=== PATIENT | male | born 1960 | race Caucasian/White ===

== ENCOUNTER 2023-09-23 17:06 | Emergency (ER) | payer OTHER ==
[~2023-09-23] VITALS: Ht 170.2 cm; Wt 77.1 kg
[2023-09-23 18:10] VITALS: BP 141/74; PULSE 65; RESP 18; TEMP 97.8; O2SAT 96
[2023-09-23 18:23] VITALS: O2SAT 96
[2023-09-23 18:51] LABS: BASOPHILS # (AUTO) 0.1 K/uL (0.00-0.22); BASOPHILS % (AUTO) 1.6 % (0.0-2.0); EOSINOPHILS % (AUTO) 0.6 % (0.0-4.0); HEMATOCRIT 38.1 % (36-52); HEMOGLOBIN 13.1 g/dL (12.0-18.0); LYMPHOCYTES # (AUTO) 0.8 K/uL (2.0-11.5); LYMPHOCYTES % (AUTO) 17.7 % (20.5-51.1); MEAN CORPUSCULAR HEMOGLOBIN 31 pg (27-31); MEAN CORPUSCULAR HGB CONC 34 g/dL (33-37); MEAN CORPUSCULAR VOLUME 91.1 fL (80-94); MONOCYTES # (AUTO) 0.6 K/uL (0.8-1.0); MONOCYTES % (AUTO) 12.5 % (1.7-9.3); NEUTROPHILS % (AUTO) 67.6 % (42.2-75.2); PLATELET COUNT (AUTO) 179 K/uL (140-450); RED BLOOD CELL COUNT(AUTO) 4.18 MIL/uL (4.20-6.10); RED CELL DISTRIBUTION WIDTH 15.7 % (11.6-13.7); WHITE BLOOD COUNT (AUTO) 4.5 K/uL (4.8-10.8)
[2023-09-23 19:09] LABS: ANION GAP 11.6 (8-16); CALCIUM 8.3 mg/dL (8.5-10.1); CARBON DIOXIDE 26.8 mmol/L (21-32); CREATININE 0.8 mg/dL (0.6-1.3); POTASSIUM 3.4 mmol/L (3.5-5.1)
[2023-09-23] MEDS ORDERED: APIXABAN 2.5 MG TAB PO SCH (21:05)
[2023-09-23] MEDS ORDERED: APIX5TAB PO (21:45)
[2023-09-23 21:53] VITALS: BP 137/73; PULSE 60; RESP 16; TEMP 97.8; O2SAT 98
== END 2023-09-23 21:53 | disposition home or self-care (01) ==
LOC: MED 17:06
DX: I82.412 Acute embolism and thrombosis of left femoral vein (principal); I82.432 Acute embolism and thrombosis of left popliteal vein; Z79.899 Other long term (current) drug therapy
CPT/HCPCS: 36415; 80048; 83880; 85025; 93971; 99285

== ENCOUNTER 2023-11-02 08:26 | Emergency (ER) | payer OTHER ==
[~2023-11-02] VITALS: Ht 170.2 cm; Wt 78.0 kg
[~2023-11-02 08:26] MED LIST: APIX5TAB PO
[2023-11-02 08:46] VITALS: BP 126/78; PULSE 57; RESP 18; TEMP 97.5; O2SAT 97
[2023-11-02] MEDS ORDERED: LIDOCAINE MPF 1% 10 MG/ML VIAL INJ ONE (09:30)
[2023-11-02] MEDS ORDERED: BACITRACIN OINT 500 UNITS/GM PKT TP ONE (10:05)
[2023-11-02] MEDS ORDERED: BACI-418 TP (10:06)
== END 2023-11-02 10:24 | disposition home or self-care (01) ==
LOC: MED 08:26
DX: S61.213A Laceration without foreign body of left middle finger without damage to nail, initial encounter (principal); W26.0XXA Contact with knife, initial encounter; Y93.89 Activity, other specified; Y92.89 Other specified places as the place of occurrence of the external cause; Y99.8 Other external cause status
CPT/HCPCS: 12001; 73140; 90471; 90715; 99283; J2001

== ENCOUNTER 2023-11-09 08:28 | Emergency (ER) | payer OTHER ==
[~2023-11-09] VITALS: Ht 167.6 cm; Wt 72.6 kg
[~2023-11-09 08:28] MED LIST changes: +BACI-418 TP
[2023-11-09 08:50] VITALS: BP 129/75; PULSE 65; RESP 18; TEMP 98; O2SAT 98
[2023-11-09 10:56] VITALS: BP 129/75; PULSE 65; RESP 18; TEMP 98; O2SAT 98
== END 2023-11-09 10:57 | disposition home or self-care (01) ==
LOC: MED 08:28
DX: S61.213D Laceration without foreign body of left middle finger without damage to nail, subsequent encounter (principal); Z48.02 Encounter for removal of sutures; I10 Essential (primary) hypertension; Z98.890 Other specified postprocedural states; Z79.2 Long term (current) use of antibiotics; Z79.01 Long term (current) use of anticoagulants; X58.XXXD Exposure to other specified factors, subsequent encounter
CPT/HCPCS: 99281